=== PATIENT | male | born 1985 | race African-American/Black ===

== ENCOUNTER 2017-07-25 04:34 | Emergency (ER) | payer OTHER ==
[~2017-07-25] VITALS: Ht 170.2 cm; Wt 61.2 kg
[~2017-07-25 04:34] MED LIST: ALPR0.25 PO; AMIT10TA6 PO; QUET200T PO
--- NOTE | 2017-07-25 04:55 | NUR ---
PT BB SELF FROM STREETS C/O "I USED [facility] AND WAS LOOKING FOR [facility], STARTED FEELING SUICIDAL AND WANNA GO TO PSYCH FACILITY". PT DENIES PLAN. PT IS AAOX4. PT AMBULATED WITH STEADY GAIT TO ER BED 11. SI PRECAUTIONS IN PLACE. VSS. NO S/S OF ACUTE DISTRESS NOTED. RESP EVEN AND UNLABORED. PT PLACED ON MONITOR AND POX. AWAITING MD FOR EVAL
--- NOTE | 2017-07-25 05:10 | NUR ---
PT UNABLE TO GIVE URINE AT THIS TIME. WATER PROVIDED TO PT. WILL CONTINUE TO MONITOR PT.
[2017-07-25 05:26] LABS: BASOPHILS % (AUTO) 0.4 % (0.0-2.0); EOSINOPHILS % (AUTO) 0.9 % (0.0-6.0); HEMATOCRIT 46 % (39-51); HEMOGLOBIN 15.1 g/dL (13.5-17.5); LYMPHOCYTES # (AUTO) 1.8 /CMM (0.8-4.8); LYMPHOCYTES % (AUTO) 27.5 % (20.0-44.0); MEAN CORPUSCULAR HGB CONC 33 g/dl (31.0-36.0); MEAN CORPUSCULAR VOLUME 82 fL (80-96); MONOCYTES # (AUTO) 0.6 /CMM (0.1-1.30); MONOCYTES % (AUTO) 9.8 % (2.0-12.0); NEUTROPHILS % (AUTO) 61.4 % (43.0-81.0); PLATELET COUNT (AUTO) 278 /CMM (150-450); RDW COEFFICIENT OF VARIATION 15.3 (11.5-15.0); RED BLOOD CELL COUNT(AUTO) 5.61 MIL/uL (4.5-6.0); WHITE BLOOD COUNT (AUTO) 6.6 K/uL (4.3-11.0)
[2017-07-25 05:46] LABS: ALANINE AMINOTRANSFERASE 44 U/L (12-78); ALBUMIN 4.4 g/dL (3.4-5.0); ALCOHOL, BLOOD < 3 mg/dL (0-0); ALKALINE PHOSPHATASE 85 U/L (46-116); ASPARTATE AMINOTRANSFERASE 59 U/L (15-37); BILIRUBIN,DIRECT 0.1 mg/dL (0.0-0.2); BILIRUBIN,TOTAL 0.8 mg/dL (0.2-1.0); CALCIUM, SERUM 9.7 mg/dL (8.5-10.1); CARBON DIOXIDE 28 mmol/L (21-32); CHLORIDE 98 mmol/L (98-107); CREATININE 1.5 mg/dL (0.6-1.3); GLUCOSE 99 mg/dL (74-106); POTASSIUM 3.5 mmol/L (3.5-5.1); SODIUM SERUM 137 mmol/L (136-145); TOTAL PROTEIN, SERUM 8.7 g/dL (6.4-8.2); UREA NITROGEN, BLOOD 32 mg/dL (7-18)
[2017-07-25 05:49] LABS: ACETAMINOPHEN 0 ug/ml (10-30); SALICYLATE 0.3 mg/dL (2.8-20.0)
--- NOTE | 2017-07-25 06:10 | NUR ---
Patient is resting comfortably in bed with eyes closed. Easily aroused. VSS. wILL CONTINUE TO MONITOR PT
--- NOTE | 2017-07-25 06:11 | NUR ---
PT UNABLE TO GIVE URINE. PT REFUSED [facility] CATH
--- NOTE | 2017-07-25 07:16 | NUR ---
REPORT GIVEN TO KEERTHI SANTOYO FOR [facility]
--- NOTE | 2017-07-25 07:30 | NUR ---
RECEIVED PT IN BED ASLEEP AROUSABLE TO CALL OF NAME . UNABLE TO PROVIDE URINE SAMPLE AT THIS TIME . DR CARRILLO MADE AWARE
--- NOTE | 2017-07-25 09:05 | NUR ---
URINE SAMPLE COLLECTED SENT TO LAB
[2017-07-25 09:14] LABS: APPEARANCE,URINE Clear (CLEAR); BILIRUBIN,URINE Negative (NEGATIVE); BLOOD, URINE Negative Ery/uL (NEGATIVE); COLOR,URINE Yellow (YELLOW); KETONES,URINE 15 (NEGATIVE); LEUKOCYTE ESTERASE ,URINE Negative (NEGATIVE); NITRITE, URINE Negative (NEGATIVE); PH,URINE 5.5 (5.0-8.0); PROTEIN,URINE Negative (NEGATIVE); UGLUCOSE Negative (NEGATIVE); UROBILINOGEN,URINE 0.2 EU/dL (0.2)
[2017-07-25 09:30] LABS: BACTERIA,URINE Rare /HPF (None Seen); RBC,URINE NONE SEEN /HPF (0-2); SQUAMOUS EPITHELIAL CELL,UR Few /HPF (None Seen); WBC,URINE NONE SEEN /HPF (0-3)
--- NOTE | 2017-07-25 12:34 | NUR ---
KEVAN AT BEDSIDE FOR PSYCH EVAL
--- NOTE | 2017-07-25 13:02 | NUR ---
CALLED [facility] FOR TRANSPORT TO [facility], ETA [id number], TRIP #[id number]
--- NOTE | 2017-07-25 13:24 | NUR ---
CALLED [facility] SPOKE TO [facility] NURSE ACCEPTING REPORT NOT AVAILABLE . MALLORIE CALL US BACK IN 30 MINS
--- NOTE | 2017-07-25 14:04 | NUR ---
CALLED [facility] TO CANCEL TRANSPORT.
--- NOTE | 2017-07-25 17:21 | NUR ---
NO BEDS AVAILABLE AT THIS TIME
--- NOTE | 2017-07-25 17:54 | NUR ---
PT ALERT WATCHING TV .AMBULATORY STEADY GAIT
--- NOTE | 2017-07-25 18:16 | NUR ---
RECEIVED CALL FROM SHARIFA AT [facility], ACCORDING TO HIM THERE IS NO BED AT ALL TODAY FOR PT.
--- NOTE | 2017-07-25 18:23 | NUR ---
PT REC'D JUICE, JELLO AND PUDDING. PT APPEARS TO BE COMFORTABLY EATING AND WATCHING TV.
--- NOTE | 2017-07-25 19:20 | NUR ---
REPORT GIVEN TO JAKOB FOR [facility]
--- NOTE | 2017-07-26 | NUR ---
PATIENT IS RESTING IN ER BED, NO DISTRESS NOTED, WILL CONTINUE TO MONITOR
--- NOTE | 2017-07-26 03:01 | NUR ---
PATIENT AMBULATED TO ER RESTOOM WITH STEADY GAIT
--- NOTE | 2017-07-26 05:01 | NUR ---
PATIENT IS RESTING IN ER BED, NO DISTRESS NOTED, RESP EVEN AND UNLABORED. WILL CONTINUE TO MONITOR
--- NOTE | 2017-07-26 05:57 | NUR ---
PATIENT AMBULATED TO ER NURSING STATION WITH STEADY GAIT REQUESTING FOOD TRAY. TOLD PATIENT DIETARY COMES AT 7A, I WILL ORDER HIM FOOD AT THAT TIME. PATIENT THEN WENT BACK TO HIS ROOM. NO DISTRESS NOTED AT THIS TIME, SKIN WARM AND DRY. WILL CONTINUE TO MONITOR
--- NOTE | 2017-07-26 09:45 | NUR ---
JONO ZELAYA AT BS TALKING TO PATIENT.
[2017-07-26 10:00] VITALS: BP 132/71
--- NOTE | 2017-07-26 10:00 | NUR ---
Patient discharged to home in stable condition. Written and verbal after care instructions given. Patient verbalizes understanding of instruction. Patient is AAOx3, denies SI/HI. Provided bus tokens.
== END 2017-07-26 10:00 | disposition home or self-care (01) ==
LOC: ER 04:36
DX: R45.851 Suicidal ideations (principal); F15.10 Other stimulant abuse, uncomplicated; F20.9 Schizophrenia, unspecified; F31.9 Bipolar disorder, unspecified; F17.200 Nicotine dependence, unspecified, uncomplicated
CPT/HCPCS: 36415; 80048-TC; 80076-TC; 80305; 81000-TC; 85025-TC; A4606; G0480; Z7610